=== PATIENT | female | born 1955 | race Caucasian/White ===

== ENCOUNTER 2017-09-04 16:05 | Outpatient (CLI) | payer OTHER ==
--- NOTE | 2017-09-04 18:29 | RAD ---
[facility] MOTILITY STUDY ABDOMEN ONE VIEW: HISTORY: Colonic immotility. FINDINGS: Stool is apparent throughout the colon and rectum. Metallic clips overly the gallbladder fossa. Sco ut image shows some gas within the stomach. Immediate image, after capsule ingestion, shows the metallic rings over the left upper quadrant, at t he region of the gastric fundus. POS: [facility]
== END 2017-09-04 16:06 | disposition home or self-care (01) ==
LOC: RAD 16:05
PROVIDERS: ATTEND Physician Assistant Medical
DX: K59.00 Constipation, unspecified (principal)
CPT/HCPCS: 74018

== ENCOUNTER 2017-09-09 09:26 | Outpatient (CLI) | payer OTHER ==
--- NOTE | 2017-09-09 10:37 | RAD ---
ABDOMEN 1 VIEW: Date: 09/09/17 HISTORY: Sitz marker test day 5. COMPARISON: Colonic motility study dated 09/04/17. FINDINGS: There appear to be a few sitz markers projecting over the right colon. Calcification projects over the left hemipelvis. IMPRESSION: Markers projecting over the ascending colon. POS: [facility]
== END 2017-09-09 09:27 | disposition home or self-care (01) ==
LOC: RAD 09:26
PROVIDERS: ATTEND Internal Medicine Gastroenterology
DX: Z01.89 Encounter for other specified special examinations (principal)
CPT/HCPCS: 74018